=== PATIENT | male | born 1955 | race Caucasian/White ===

== ENCOUNTER 2017-08-02 14:06 | Inpatient (IN) | payer MEDICAID ==
[~2017-08-02] VITALS: Ht 182.9 cm; Wt 65.3 kg
[2017-08-02] MEDS ORDERED: SODIUM CHLORIDE 0.9% 1,000 ML IV ONE (14:46)
[2017-08-02] MEDS ORDERED: MORPHINE SULFATE 4 MG/ML CPJ (NOT FOR IM USE) IV STA (14:46)
[2017-08-02] MEDS ORDERED: ONDANSETRON HCL 4MG/2ML VIAL IV STA (14:46)
[2017-08-02 15:15] LABS: BASOPHILS % 0.6 % (0.0-2.0); EOSINOPHILS % 5.2 % (0.0-5.0); HEMATOCRIT. 26.1 % (42.0-52.0); HEMOGLOBIN. 8.6 g/dL (14.0-18.0); LYMPHOCYTES % 16.6 % (20.0-50.0); MEAN CORPUSCULAR HEMOGLOBIN 26.9 pg (28.0-32.0); MEAN CORPUSCULAR VOLUME 81.7 fL (80.0-94.0); MEAN PLATELET VOLUME 6.9 fl (7.4-10.4); NEUTROPHILS % 66.6 % (40.0-76.0); PLATELET 174 x1000/uL (130-400)
[2017-08-02 15:20] LABS: PARTIAL THROMBOPLASTIN TIME 30.1 sec (23.4-31.0); PROTHROMBIN TIME 10.6 sec (9.4-11.6)
[2017-08-02 15:26] LABS: CARBON DIOXIDE 20 mEq/L (21-32); CHLORIDE 106 mEq/L (98-107)
[2017-08-02 15:29] LABS: TROPONIN I < 0.02 ng/mL (0.00-0.04)
[2017-08-02 15:34] LABS: PHOSPHORUS 9.8 mg/dL (2.5-4.9)
[2017-08-02] MEDS ORDERED: ALBUTEROL (0.083%) 2.5MG/3ML NEB HHN ONE (15:45)
[2017-08-02] MEDS ORDERED: INSULIN REGULAR (HUMULIN R) 300UNITS/3ML IV ONE (15:45)
[2017-08-02] MEDS ORDERED: DEXTROSE 50% WATER 50ML SYRINGE IV ONE (15:45)
[2017-08-02] MEDS ORDERED: SODIUM BICARBONATE 8.4% 1 MEQ/ML 50ML SYR IV ONE (15:45)
[2017-08-02] MEDS ORDERED: SODIUM POLYSTYRENE SULFONATE 15 G/60 ML BOT PO ONE (15:45)
[2017-08-02] MEDS ORDERED: SODIUM BICARBONATE 4% (2.4MEQ) 5ML VIAL IV ONE (16:07)
[2017-08-02] MEDS ORDERED: LIDOCAINE HCL 1% 20ML VIAL (Pyxis) INJ ONE (16:07)
[2017-08-02] MEDS ORDERED: HEPARIN 1000 UNITS/ML 10ML ONE (16:07)
[2017-08-02 16:15] LABS: HEPATITIS B SURFACE ANTIGEN NEGATIVE
[2017-08-02 16:43] LABS: HEPATITIS B CORE AB IGM NEGATIVE
[2017-08-02 16:45] LABS: HEPATITIS A AB IGM NEGATIVE (NEGATIVE)
[2017-08-02] MEDS ORDERED: CEFTRIAXONE 1 G PREMIX 50 ML IV ONE (18:30)
[2017-08-02 18:38] LABS: CLARITY URINE CLEAR (CLEAR); COLOR URINE YELLOW (YELLOW); GLUCOSE URINE NEGATIVE (NEGATIVE); KETONES URINE NEGATIVE (NEGATIVE); LEUKOCYTE ESTERASE URINE NEGATIVE (NEGATIVE); NITRITE URINE NEGATIVE (NEGATIVE); OCCULT BLOOD URINE 2+ (NEGATIVE); PH URINE 5.5 (4.5-8.0); PROTEIN URINE NEGATIVE (NEGATIVE); UROBILINOGEN URINE 0.2 E.U./dL (0.2-1.0)
[2017-08-02 22:00] VITALS: BP 143/88
[2017-08-02] MEDS ORDERED: OMEP20TA15 PO (22:08)
[2017-08-02] MEDS ORDERED: NORCO PO (22:11)
[2017-08-02 23:27] LABS: CREATINE KINASE 28 IU/L (39-308); CREATINE KINASE MB FRACTION 0.9 ng/mL (0.5-3.6); TROPONIN I < 0.02 ng/mL (0.00-0.04)
[2017-08-03] VITALS: BP 118/82
[2017-08-03 04:00] VITALS: BP 93/66
[2017-08-03] MEDS ORDERED: MORPHINE SULFATE 2 MG/ML CPJ (NOT FOR IM USE) IV PRN (04:15)
[2017-08-03] MEDS: MORPHINE SULFATE 4 MG/ML CPJ (NOT FOR IM USE) IV PRN ×3 (04:52→16:09)
[2017-08-03 06:17] LABS: HEMATOCRIT. 30.5 % (42.0-52.0); MEAN CORPUSCULAR HEMOGLOBIN 26.8 pg (28.0-32.0); MEAN CORPUSCULAR VOLUME 81.5 fL (80.0-94.0); MEAN PLATELET VOLUME 7.4 fl (7.4-10.4); PLATELET 190 x1000/uL (130-400); RED BLOOD CELL COUNT 3.74 mill/uL (4.7-6.1); RED CELL DISTRIBUTION WIDTH 17.3 % (11.6-14.6)
[2017-08-03 06:41] LABS: CARCINO EMBRYONIC ANTIGEN 54.5 ng/ml
[2017-08-03 06:45] LABS: CARBON DIOXIDE 23 mEq/L (21-32); CHLORIDE 103 mEq/L (98-107)
[2017-08-03 06:54] LABS: CREATINE KINASE 23 IU/L (39-308); CREATINE KINASE MB FRACTION < 0.5 ng/mL (0.5-3.6)
[2017-08-03 07:06] LABS: TROPONIN I < 0.02 ng/mL (0.00-0.04)
[2017-08-03 07:58] LABS: FOLIC ACID (FOLATE) SERUM 18.9 ng/mL (>5.38)
[2017-08-03 12:00] VITALS: BP 100/79
[2017-08-03] MEDS: SODIUM CHLORIDE 0.45% 1,000 ML IV SCH (13:01)
[2017-08-03 16:00] VITALS: BP 111/76
[2017-08-03 16:31] LABS: HEMATOCRIT 30.8 % (42.0-52.0); HEMOGLOBIN 10.1 g/dL (14.0-18.0)
[2017-08-03 19:35] VITALS: BP 108/75
[2017-08-03 23:03] LABS: HEMATOCRIT 29.2 % (42.0-52.0); HEMOGLOBIN 9.6 g/dL (14.0-18.0)
[2017-08-03] MEDS: HYDROCODONE/ACETAMINOPHEN 5/325MG TABLET PO PRN (23:23)
[2017-08-04 00:41] VITALS: BP 109/74
[2017-08-04 05:07] VITALS: BP 110/77
[2017-08-04 07:29] LABS: BASOPHILS % 0.5 % (0.0-2.0); EOSINOPHILS % 5.5 % (0.0-5.0); HEMATOCRIT. 28.8 % (42.0-52.0); HEMOGLOBIN. 9.5 g/dL (14.0-18.0); LYMPHOCYTES % 12.3 % (20.0-50.0); MEAN CORPUSCULAR HEMOGLOBIN 26.9 pg (28.0-32.0); MEAN CORPUSCULAR VOLUME 81.4 fL (80.0-94.0); MEAN PLATELET VOLUME 7.4 fl (7.4-10.4); MONOCYTES % 14.6 % (2.0-8.0); NEUTROPHILS % 67.1 % (40.0-76.0); PLATELET 174 x1000/uL (130-400); RED BLOOD CELL COUNT 3.54 mill/uL (4.7-6.1); RED CELL DISTRIBUTION WIDTH 18.2 % (11.6-14.6)
[2017-08-04 07:58] VITALS: BP 108/76
[2017-08-04] MEDS: OMEPRAZOLE 20MG CAPSULE EXTENDED RELEASE PO SCH (08:42)
[2017-08-04] MEDS: HYDROCODONE/ACETAMINOPHEN 5/325MG TABLET PO PRN ×3 (08:43→18:31)
[2017-08-04 09:55] LABS: PLATELET ESTIMATE NORMAL
[2017-08-04] MEDS ORDERED: POTASSIUM CHLORIDE 20MEQ TABLET SR PO SCH (10:15)
[2017-08-04 12:09] VITALS: BP 108/76
[2017-08-04] MEDS: SODIUM CHLORIDE 0.45% 1,000 ML IV SCH ×2 (13:30→14:51)
[2017-08-04 16:00] VITALS: BP 124/78
[2017-08-04 20:00] VITALS: BP 118/74
[2017-08-05] VITALS: BP 110/73
[2017-08-05] MEDS: SODIUM CHLORIDE 0.45% 1,000 ML IV SCH ×2 (03:47→17:06)
[2017-08-05] MEDS: HYDROCODONE/ACETAMINOPHEN 5/325MG TABLET PO PRN ×2 (03:49→08:19)
[2017-08-05 04:00] VITALS: BP 131/77
[2017-08-05] MEDS: OMEPRAZOLE 20MG CAPSULE EXTENDED RELEASE PO SCH (06:22)
[2017-08-05 06:51] LABS: BASOPHILS % 0.6 % (0.0-2.0); HEMATOCRIT. 27.2 % (42.0-52.0); HEMOGLOBIN. 8.9 g/dL (14.0-18.0); LYMPHOCYTES % 12.5 % (20.0-50.0); MEAN CORPUSCULAR HEMOGLOBIN 26.7 pg (28.0-32.0); MEAN CORPUSCULAR VOLUME 82.2 fL (80.0-94.0); MEAN PLATELET VOLUME 7.4 fl (7.4-10.4); MONOCYTES % 11.9 % (2.0-8.0); PLATELET 163 x1000/uL (130-400); RED BLOOD CELL COUNT 3.31 mill/uL (4.7-6.1); RED CELL DISTRIBUTION WIDTH 17.9 % (11.6-14.6)
[2017-08-05 07:24] LABS: CARBON DIOXIDE 28 mEq/L (21-32); CHLORIDE 104 mEq/L (98-107)
[2017-08-05 08:00] VITALS: BP 106/76
[2017-08-05] MEDS ORDERED: POTASSIUM CHLORIDE 20MEQ TABLET SR PO SCH (11:30)
[2017-08-05 12:00] VITALS: BP 125/80
[2017-08-05 16:00] VITALS: BP 122/79
[2017-08-05 20:00] VITALS: BP 119/74
[2017-08-06] VITALS: BP 109/76
[2017-08-06] MEDS: SODIUM CHLORIDE 0.45% 1,000 ML IV SCH (00:58)
[2017-08-06 04:00] VITALS: BP 126/76
[2017-08-06 06:10] LABS: BASOPHILS % 0.4 % (0.0-2.0); EOSINOPHILS % 5.6 % (0.0-5.0); HEMATOCRIT. 27.6 % (42.0-52.0); LYMPHOCYTES % 10.3 % (20.0-50.0); MEAN CORPUSCULAR HEMOGLOBIN 27.3 pg (28.0-32.0); MEAN CORPUSCULAR VOLUME 84.2 fL (80.0-94.0); MEAN PLATELET VOLUME 7.7 fl (7.4-10.4); MONOCYTES % 10.6 % (2.0-8.0); NEUTROPHILS % 73.1 % (40.0-76.0); PLATELET 152 x1000/uL (130-400); RED BLOOD CELL COUNT 3.28 mill/uL (4.7-6.1); RED CELL DISTRIBUTION WIDTH 17.8 % (11.6-14.6)
[2017-08-06] MEDS: OMEPRAZOLE 20MG CAPSULE EXTENDED RELEASE PO SCH (06:23)
[2017-08-06 06:50] LABS: CARBON DIOXIDE 26 mEq/L (21-32); CHLORIDE 105 mEq/L (98-107)
[2017-08-06 08:01] VITALS: BP 115/78
[2017-08-06 11:56] VITALS: BP 108/81
[2017-08-06 15:45] VITALS: BP 108/81
[2017-08-06 16:16] VITALS: BP 127/82
[2017-08-07] MEDS ORDERED: FAMOTIDINE 20MG TABLET PO SCH (09:00)
== END 2017-08-06 16:30 | disposition home health service (06) | DRG 465 ==
LOC: ER 14:06 → 6WST 15:59 → EDBEDREQ 16:04 → ENRESERV 20:20
PROVIDERS: ADMIT Internal Medicine; ATTEND Internal Medicine
PROC: 02H633Z Insertion of Infusion Device into Right Atrium, Percutaneous Approach (ICD-10-PCS; principal; 2017-08-02)
PROC: B5181ZA Fluoroscopy of Superior Vena Cava using Low Osmolar Contrast, Guidance (ICD-10-PCS; 2017-08-02)
PROC: B244ZZZ Ultrasonography of Right Heart (ICD-10-PCS; 2017-08-02)
PROC: 5A1D00Z (ICD-10-PCS; 2017-08-02)
DX: N13.30 Unspecified hydronephrosis (principal); N17.0 Acute kidney failure with tubular necrosis; E43 Unspecified severe protein-calorie malnutrition; E87.2 Acidosis; C20 Malignant neoplasm of rectum; N32.89 Other specified disorders of bladder; D63.1 Anemia in chronic kidney disease; N17.9 Acute kidney failure, unspecified; E87.5 Hyperkalemia; I12.9 Hypertensive chronic kidney disease with stage 1 through stage 4 chronic kidney disease, or unspecified chronic kidney disease; M25.611 Stiffness of right shoulder, not elsewhere classified; N39.0 Urinary tract infection, site not specified; Z60.2 Problems related to living alone; R33.9 Retention of urine, unspecified; N18.9 Chronic kidney disease, unspecified; R31.0 Gross hematuria; Z93.3 Colostomy status; Z92.3 Personal history of irradiation; Z92.21 Personal history of antineoplastic chemotherapy; Z85.048 Personal history of other malignant neoplasm of rectum, rectosigmoid junction, and anus
CPT/HCPCS: 36415; 36556; 71010; 73030; 74176; 76770; 76937; 77001; 80048; 80053; 81001; 82248; 82378; 82550; 82553; 82607; 82728; 82746; 82962; 83540; 83550; 83690; 83735; 84100; 84153; 84443; 84484; 85014; 85018; 85025; 85044; 85610; 85651; 85730; 86301; 86705; 86709; 86803; 86850; 86900; 87040; 87086; 87340; 93005; 93970; 96361; 96365; 96375; 97116; 97162; 97166; 97530; 99291; C1752; C1893; J0696; J1644; J1815; J2270; J2405; J3490; J7030